=== PATIENT | female | born 1970 | race Two or more races ===

== ENCOUNTER 2018-11-08 21:56 | Emergency (ER) | payer MEDICAID ==
[~2018-11-08] VITALS: Ht 144.8 cm; Wt 67.0 kg
[2018-11-09] MEDS ORDERED: IBUPROFEN 600MG TABLET PO ONE (00:15)
[2018-11-09 01:26] VITALS: BP 165/71
== END 2018-11-09 01:27 | disposition home or self-care (01) ==
LOC: ER 21:56
DX: F41.9 Anxiety disorder, unspecified (principal); M25.562 Pain in left knee; J45.909 Unspecified asthma, uncomplicated; I10 Essential (primary) hypertension
CPT/HCPCS: 73562; 81025; 99284

== ENCOUNTER 2019-03-15 13:59 | Emergency (ER) | payer MEDICAID ==
[~2019-03-15] VITALS: Ht 144.8 cm; Wt 63.0 kg
[2019-03-15] MEDS ORDERED: ACETAMINOPHEN 325MG TABLET PO STA (16:44)
[2019-03-15 17:04] LABS: CLARITY URINE CLEAR (CLEAR); COLOR URINE YELLOW (YELLOW); KETONES URINE NEGATIVE (NEGATIVE); LEUKOCYTE ESTERASE URINE NEGATIVE (NEGATIVE); NITRITE URINE NEGATIVE (NEGATIVE); OCCULT BLOOD URINE NEGATIVE (NEGATIVE); PROTEIN URINE NEGATIVE (NEGATIVE); SPECIFIC GRAVITY URINE 1.005 (1.005-1.030); UROBILINOGEN URINE 0.2 E.U./dL (0.2-1.0)
[2019-03-15 20:28] VITALS: BP 143/79
== END 2019-03-15 20:28 | disposition home or self-care (01) ==
LOC: ER 13:59
DX: M54.5 Low back pain (principal); M54.31 Sciatica, right side; G89.29 Other chronic pain; M25.551 Pain in right hip; M25.561 Pain in right knee; R20.2 Paresthesia of skin; F41.9 Anxiety disorder, unspecified
CPT/HCPCS: 72070; 72100; 81025; 99284

== ENCOUNTER 2024-03-01 17:08 | Emergency (ER) | payer MEDICAID, OTHER ==
[~2024-03-01] VITALS: Ht 144.8 cm; Wt 63.5 kg
[2024-03-01 17:17] VITALS: BP 133/87; PULSE 71; RESP 16; TEMP 98.7; O2SAT 100
[2024-03-01 17:42] LABS: BASOPHILS % 0.8 % (0.0-2.0); DIFFERENTIAL COMMENT 0; EOSINOPHILS % 2.2 % (0.0-5.0); HEMATOCRIT. 30.6 % (36.0-48.0); HEMOGLOBIN. 9.5 g/dL (12.0-16.0); MEAN CORPUSCULAR HEMOGLOBIN 23.6 pg (28.0-32.0); MEAN CORPUSCULAR HGB CONC 31.1 g/dL (31.0-37.0); MEAN CORPUSCULAR VOLUME 75.8 fL (81.0-99.0); MEAN PLATELET VOLUME 8.4 fl (7.4-10.4); MONOCYTES % 7.4 % (2.0-8.0); NEUTROPHILS % 59.6 % (40.0-76.0); PLATELET 287 x1000/uL (130-400); RED BLOOD CELL COUNT 4.04 mill/uL (4.2-5.4); RED CELL DISTRIBUTION WIDTH 21.4 % (11.6-14.6); WHITE BLOOD COUNT 7.5 x1000/uL (4.5-11.0)
[2024-03-01 17:47] LABS: CHLORIDE 108 mEq/L (98-107); POTASSIUM 3.6 mEq/L (3.5-5.1); SODIUM 138 mEq/L (136-145)
[2024-03-01 17:48] LABS: CALCIUM 8.7 mg/dL (8.7-10.4); CARBON DIOXIDE 23 mEq/L (21-32)
[2024-03-01 17:53] LABS: CREATININE 0.6 mg/dL (0.6-1.0); GLUCOSE 126 mg/dL (70-105); UREA NITROGEN BLOOD 12 mg/dL (9-23)
[2024-03-01 19:33] LABS: HCG SCREEN NEGATIVE
[2024-03-01 19:39] LABS: INR 0.9; PARTIAL THROMBOPLASTIN TIME 25.1 sec (23.4-31.0); PROTHROMBIN TIME 9.9 sec (9.6-11.0)
[2024-03-01 22:43] LABS: HEMATOCRIT 30.3 % (36.0-48.0); HEMOGLOBIN 9.7 g/dL (12.0-16.0)
[2024-03-01] MEDS ORDERED: FERR324T4 MT (23:03)
== END 2024-03-02 02:11 | disposition home or self-care (01) ==
LOC: ER 17:08
DX: D25.9 Leiomyoma of uterus, unspecified (principal); D64.9 Anemia, unspecified; F41.9 Anxiety disorder, unspecified; K59.00 Constipation, unspecified; Z87.440 Personal history of urinary (tract) infections
CPT/HCPCS: 36415; 76830; 76856; 80048; 84703; 85014; 85018; 85025; 99284